=== PATIENT | male | born 1970 | race Caucasian/White ===

== ENCOUNTER 2017-11-03 15:21 | Inpatient (IN) | payer BC ==
[2017-11-03 15:44] LABS: Glucose,Whole Blood 451 mg/dL (75-99)
[2017-11-03] MEDS ORDERED: SODIUM CHLORIDE 0.9% 2,000 ML IV ONE (16:18)
[2017-11-03] MEDS ORDERED: INSULIN REGULAR 100 UNIT/ML VIAL IV ONE (16:19)
--- NOTE | 2017-11-03 16:46 | ED ---
General Adult HPI - General Chief complaint: Recheck/Abnormal Lab/Rx Stated complaint: High sugar Time Seen by Provider: 11/03/17 16:07 Source: patient, RN notes reviewed Mode of arrival: ambulatory Limitations: no limitations - History of Present Illness Initial comments: 47-year-old male presents emergency Department with chief complaint of hyperglycemia, feeling dizzy, near syncope. Patient states that today he's been extremely dizzy states that when he stands up or tries to move he loses vision and feels that he is going to pass out. Patient states that he checked his blood sugar was elevated current blood sugar here is 451. Patient has increased thirst, increased urination. Patient states that all night urinating. Patient states that he's been told by his PCP that he's been having slowly increasing blood glucose. Patient states that his been also tried on metformin in the past though cause muscle cramping and aching. Patient states that he did have a renal transplant secondary to polycystic kidney disease. Patient states he is on immune suppressants and sees his transplant team twice a year he's had no complications. - Related Data Home Medications Medication Instructions Recorded Confirmed ARIPiprazole [Abilify] 10 mg PO DAILY 09/03/16 11/03/17 Allopurinol [Zyloprim] 100 mg PO DAILY 09/03/16 11/03/17 Budesonide/Formoterol Fumarate 2 puff INHALATION RT-BID PRN 09/03/16 11/03/17 [Symbicort 80-4.5 Mcg Inhaler] Cholecalciferol [Vitamin D3] 1,000 unit PO DAILY 09/03/16 11/03/17 Doxercalciferol [Doxercalciferol] 0.5 mcg PO DAILY 09/03/16 11/03/17 Ergocalciferol (Vitamin D2) 50,000 unit PO Q30D 09/03/16 11/03/17 [Vitamin D2] Famotidine [Pepcid] 20 mg PO DAILY 09/03/16 11/03/[address] [Myfortic] 360 mg PO BID 09/03/16 09/03/16 Simvastatin [Zocor] 40 mg PO HS 09/03/16 11/03/17 Sodium Bicarbonate 50 mg PO TID 09/03/16 11/03/17 Tacrolimus [Prograf] 1 mg PO BID 09/03/16 11/03/17 amLODIPine [Norvasc] 10 mg PO DAILY 09/03/16 11/03/17 predniSONE 5 mg PO DAILY 09/03/16 11/03/17 Carvedilol [Coreg] 6.25 mg PO DAILY 11/03/17 11/03/17 Mycophenolate Sodium [Mycophenolic 720 mg PO BID 11/03/17 11/03/17 Acid] metFORMIN HCL ER [Glucophage Xr] 500 mg PO DAILY 11/03/17 11/03/17 Allergies Allergy/AdvReac Type Severity Reaction Status Date / Time Penicillins Allergy Rash/Hives Verified 11/03/17 16:08 Review of Systems ROS Statement: Those systems with pertinent positive or pertinent negative responses have been documented in the HPI. ROS Other: All systems not noted in ROS Statement are negative. Past Medical History Past Medical History: Hypertension Additional Past Medical History / Comment(s): kidney transplant, History of Any Multi-Drug Resistant Organisms: None Reported Past Surgical History: Orthopedic Surgery Additional Past Surgical History / Comment(s): silvestre nephrectomys, kidney transplant, peritoneal dialysis shunt orthopedic surg elbow toe Past Psychological History: No Psychological Hx Reported Smoking Status: Never smoker Past Alcohol Use History: None Reported Past Drug Use History: None Reported General Exam Limitations: no limitations General appearance: alert, in no apparent distress Head exam: Present: atraumatic, normocephalic, normal inspection Eye exam: Present: normal appearance, PERRL, EOMI. Absent: scleral icterus, conjunctival injection, periorbital swelling ENT exam: Present: normal exam, normal oropharynx, mucous membranes moist Neck exam: Present: normal inspection, full ROM. Absent: tenderness, meningismus, lymphadenopathy Respiratory exam: Present: normal lung sounds bilaterally. Absent: respiratory distress, wheezes, rales, rhonchi, stridor Cardiovascular Exam: Present: regular rate, normal rhythm, normal heart sounds. Absent: systolic murmur, diastolic murmur, rubs, gallop, clicks GI/Abdominal exam: Present: soft, normal bowel sounds. Absent: distended, tenderness, guarding, rebound, rigid Back exam: Present: normal inspection Neurological exam: Present: alert, oriented X3, CN II-XII intact, reflexes normal. Absent: motor sensory deficit Skin exam: Present: warm, dry, intact, normal color. Absent: rash Course Vital Signs 11/03/17 11/03/17 15:25 18:10 Temperature 97.8 F Pulse Rate 84 76 Respiratory 20 19 Rate Blood Pressure 136/78 133/77 O2 Sat by Pulse 99 100 Oximetry EKG Findings - EKG Comments: EKG Findings:: EKG performed at 16:39 normal sinus rhythm with a rate of 81 NJ 126 QRS 90 QT/QTC 396/460 Medical Decision Making - Lab Data Result diagrams: 11/03/17 17:00 11/03/17 17:00 Lab Results 11/03/17 11/03/17 11/03/17 Range/Units 15:31 17:00 17:00 WBC 6.8 (3.8-10.6) k/uL RBC 4.72 (4.30-5.90) m/uL Hgb 14.0 (13.0-17.5) gm/dL Hct 40.5 (39.0-53.0) % MCV 85.7 (80.0-100.0) fL MCH 29.6 (25.0-35.0) pg MCHC 34.5 (31.0-37.0) g/dL RDW 14.2 (11.5-15.5) % Plt Count 174 (150-450) k/uL Neutrophils % 60 % Lymphocytes % 31 % Monocytes % 6 % Eosinophils % 1 % Basophils % 0 % Neutrophils # 4.1 (1.3-7.7) k/uL Lymphocytes # 2.1 (1.0-4.8) k/uL Monocytes # 0.4 (0-1.0) k/uL Eosinophils # 0.1 (0-0.7) k/uL Basophils # 0.0 (0-0.2) k/uL Sodium 133 L (137-145) mmol/L Potassium 4.8 (3.5-5.1) mmol/L Chloride 95 L (98-107) mmol/L Carbon Dioxide 21 L (22-30) mmol/L Anion Gap 17 mmol/L BUN 28 H (9-20) mg/dL Creatinine 1.34 H (0.66-1.25) mg/dL Est GFR (MDRD) Af Amer >60 (>60 ml/min/1.73 sqM) Est GFR (MDRD) Non-Af 57 (>60 ml/min/1.73 sqM) Glucose 440 H (74-99) mg/dL POC Glucose (mg/dL) 451 H (75-99) mg/dL POC Glu Spray Unit Feeder ID Bandar Casillas Calcium 9.1 (8.4-10.2) mg/dL Total Bilirubin 1.8 H (0.2-1.3) mg/dL AST 16 L (17-59) U/L ALT 21 (21-72) U/L Alkaline Phosphatase 106 (38-126) U/L Troponin I (0.000-0.034) ng/mL Total Protein 6.6 (6.3-8.2) g/dL Albumin 4.3 (3.5-5.0) g/dL Lipase 149 (23-300) U/L Urine Color Urine Appearance (Clear) Urine pH (5.0-8.0) Ur Specific [place] (1.001-1.035) Urine Protein (Negative) Urine Glucose (UA) (Negative) Urine Blood (Negative) Urine Nitrite (Negative) Urine Bilirubin (Negative) Urine Urobilinogen (<2.0) mg/dL Ur Leukocyte Esterase (Negative) Acetone, Qual Positive (Negative) 11/03/17 11/03/17 11/03/17 Range/Units 17:00 17:50 17:55 WBC (3.8-10.6) k/uL RBC (4.30-5.90) m/uL Hgb (13.0-17.5) gm/dL Hct (39.0-53.0) % MCV (80.0-100.0) fL MCH (25.0-35.0) pg MCHC (31.0-37.0) g/dL RDW (11.5-15.5) % Plt Count (150-450) k/uL Neutrophils % % Lymphocytes % % Monocytes % % Eosinophils % % Basophils % % Neutrophils # (1.3-7.7) k/uL Lymphocytes # (1.0-4.8) k/uL Monocytes # (0-1.0) k/uL Eosinophils # (0-0.7) k/uL Basophils # (0-0.2) k/uL Sodium (137-145) mmol/L Potassium (3.5-5.1) mmol/L Chloride (98-107) mmol/L Carbon Dioxide (22-30) mmol/L Anion Gap mmol/L BUN (9-20) mg/dL Creatinine (0.66-1.25) mg/dL Est GFR (MDRD) Af Amer (>60 ml/min/1.73 sqM) Est GFR (MDRD) Non-Af (>60 ml/min/1.73 sqM) Glucose (74-99) mg/dL POC Glucose (mg/dL) 363 H (75-99) mg/dL POC Glu Spray Unit Feeder ID Mariusz Lim Calcium (8.4-10.2) mg/dL Total Bilirubin (0.2-1.3) mg/dL AST (17-59) U/L ALT (21-72) U/L Alkaline Phosphatase (38-126) U/L Troponin I <0.012 (0.000-0.034) ng/mL Total Protein (6.3-8.2) g/dL Albumin (3.5-5.0) g/dL Lipase (23-300) U/L Urine Color Light Yellow Urine Appearance Clear (Clear) Urine pH 5.0 (5.0-8.0) Ur Specific [place] 1.019 (1.001-1.035) Urine Protein Negative (Negative) Urine Glucose (UA) 4+ H (Negative) Urine Blood Negative (Negative) Urine Nitrite Negative (Negative) Urine Bilirubin Negative (Negative) Urine Urobilinogen <2.0 (<2.0) mg/dL Ur Leukocyte Esterase Negative (Negative) Acetone, Qual (Negative) Disposition Clinical Impression: DKA (diabetic ketoacidoses) Dis[facility] Condition: Stable Referrals: Bandar Cabral MD [Primary Care Provider] - 1-2 days
[2017-11-03 17:19] LABS: Basophils % (A) 0 %; Eosinophils # (A) 0.1 k/uL (0-0.7); Eosinophils % (A) 1 %; HCT 40.5 % (39.0-53.0); Lymphocytes # (A) 2.1 k/uL (1.0-4.8); Lymphocytes % (A) 31 %; MCH 29.6 pg (25.0-35.0); MCHC 34.5 g/dL (31.0-37.0); MCV 85.7 fL (80.0-100.0); Mean Platelet Volume 7.8; Monocytes # (A) 0.4 k/uL (0-1.0); Monocytes % (A) 6 %; Neutrophils # (A) 4.1 k/uL (1.3-7.7); Neutrophils % (A) 60 %; Platelet Count 174 k/uL (150-450); RBC 4.72 m/uL (4.30-5.90); RDW 14.2 % (11.5-15.5); WBC 6.8 k/uL (3.8-10.6)
[2017-11-03 17:47] LABS: ALT 21 U/L (21-72); AST 16 U/L (17-59); Albumin 4.3 g/dL (3.5-5.0); Alkaline Phosphatase 106 U/L (38-126); Anion Gap 17 mmol/L; Blood Urea Nitrogen 28 mg/dL (9-20); Calcium 9.1 mg/dL (8.4-10.2); Carbon Dioxide 21 mmol/L (22-30); Chloride 95 mmol/L (98-107); Glucose 440 mg/dL (74-99); Lipase 149 U/L (23-300); Potassium 4.8 mmol/L (3.5-5.1); Sodium 133 mmol/L (137-145); Total Bilirubin 1.8 mg/dL (0.2-1.3); Total Protein 6.6 g/dL (6.3-8.2)
[2017-11-03 17:55] LABS: Glucose,Whole Blood 363 mg/dL (75-99)
[2017-11-03 18:01] LABS: Appearance,Urine Clear (Clear); Bilirubin,Urine Negative (Negative); Blood,Urine Negative (Negative); Color,Urine Light Yellow; Glucose,Urine (UA) 4+ (Negative); Leukocyte Esterase,Urine Negative (Negative); Protein,Urine Negative (Negative); Specific Gravity,Urine 1.019 (1.001-1.035); Urobilinogen,Urine <2.0 mg/dL (<2.0)
[2017-11-03 18:15] LABS: Ketones,Urine 2+ (Negative)
[2017-11-03] MEDS ORDERED: SODIUM CHLORIDE 0.9% 1,000 ML IV SCH ×2 (18:15→20:00)
[2017-11-03] MEDS ORDERED: NALOXONE 0.4 MG/ML 1 ML VIAL IV PRN (18:17)
[2017-11-03 19:24] LABS: Glucose,Whole Blood 302 mg/dL (75-99)
[2017-11-03] MEDS ORDERED: Magnesium Replacement Protocol 1 EACH MISC MISCELLANE PRN (19:55)
[2017-11-03] MEDS ORDERED: Potassium Replacement Protocol 1 EACH MISC MISCELLANE PRN (19:55)
[2017-11-03 20:00] LABS: Glucose,Whole Blood 308 mg/dL (75-99)
[2017-11-03] MEDS ORDERED: INSULIN REGULAR 100 UNIT in SODIUM CHLORIDE 0.9% 100 ML IV SCH (20:00)
[2017-11-03] MEDS ORDERED: D5-0.45% NACL WITH KCL 20MEQ/L 1,000 ML IV SCH (20:00)
[2017-11-03 20:45] LABS: Anion Gap 14 mmol/L; Basophils % (A) 1 %; Blood Urea Nitrogen 24 mg/dL (9-20); Carbon Dioxide 21 mmol/L (22-30); Chloride 102 mmol/L (98-107); Eosinophils % (A) 1 %; Glucose 283 mg/dL (74-99); HCT 36.3 % (39.0-53.0); HGB 12.7 gm/dL (13.0-17.5); Lymphocytes # (A) 1.6 k/uL (1.0-4.8); Lymphocytes % (A) 37 %; MCH 29.8 pg (25.0-35.0); MCV 85.1 fL (80.0-100.0); Mean Platelet Volume 7.8; Monocytes # (A) 0.3 k/uL (0-1.0); Monocytes % (A) 6 %; Neutrophils # (A) 2.4 k/uL (1.3-7.7); Neutrophils % (A) 54 %; Phosphorus 3.2 mg/dL (2.5-4.5); Platelet Count 140 k/uL (150-450); Potassium 4.1 mmol/L (3.5-5.1); RBC 4.27 m/uL (4.30-5.90); RDW 14.2 % (11.5-15.5); Sodium 137 mmol/L (137-145); WBC 4.4 k/uL (3.8-10.6)
[2017-11-03] MEDS: INSULIN ASPART 100 UNIT/ML 1 ML 10 ML VIAL SQ SCH (20:53)
[2017-11-03 21:51] LABS: Glucose,Whole Blood 226 mg/dL (75-99)
[2017-11-03 23:21] LABS: Glucose,Whole Blood 140 mg/dL (75-99)
[2017-11-04 00:42] LABS: Glucose,Whole Blood 115 mg/dL (75-99)
[2017-11-04 00:46] LABS: Anion Gap 10 mmol/L; Blood Urea Nitrogen 20 mg/dL (9-20); Carbon Dioxide 25 mmol/L (22-30); Chloride 105 mmol/L (98-107); Glucose 97 mg/dL (74-99); Phosphorus 2.7 mg/dL (2.5-4.5); Potassium 3.7 mmol/L (3.5-5.1); Sodium 140 mmol/L (137-145)
[2017-11-04] MEDS ORDERED: INSULIN NPH 300 UNIT/3 ML VIAL SQ ONE (00:53)
[2017-11-04] MEDS: D5-0.45% NACL WITH KCL 20MEQ/L 1,000 ML IV SCH (01:18)
[2017-11-04 03:06] LABS: Glucose,Whole Blood 141 mg/dL (75-99)
[2017-11-04 06:07] LABS: Glucose,Whole Blood 184 mg/dL (75-99)
[2017-11-04 06:08] LABS: Basophils % (A) 0 %; Eosinophils # (A) 0.1 k/uL (0-0.7); Eosinophils % (A) 2 %; HCT 37.2 % (39.0-53.0); HGB 12.6 gm/dL (13.0-17.5); Lymphocytes # (A) 1.7 k/uL (1.0-4.8); Lymphocytes % (A) 39 %; MCH 29.5 pg (25.0-35.0); Mean Platelet Volume 7.6; Monocytes # (A) 0.3 k/uL (0-1.0); Monocytes % (A) 7 %; Neutrophils # (A) 2.2 k/uL (1.3-7.7); Neutrophils % (A) 50 %; Platelet Count 146 k/uL (150-450); RBC 4.28 m/uL (4.30-5.90); RDW 14.3 % (11.5-15.5); WBC 4.4 k/uL (3.8-10.6)
[2017-11-04 06:18] LABS: ALT 16 U/L (21-72); AST 15 U/L (17-59); Albumin 3.1 g/dL (3.5-5.0); Alkaline Phosphatase 54 U/L (38-126); Anion Gap 13 mmol/L; Blood Urea Nitrogen 17 mg/dL (9-20); Calcium 8.1 mg/dL (8.4-10.2); Carbon Dioxide 22 mmol/L (22-30); Chloride 103 mmol/L (98-107); Glucose 175 mg/dL (74-99); Phosphorus 3.1 mg/dL (2.5-4.5); Potassium 4.1 mmol/L (3.5-5.1); Sodium 138 mmol/L (137-145); Total Protein 5.2 g/dL (6.3-8.2)
[2017-11-04] MEDS ORDERED: SYMBICORT 80-4.5 MCG INHALER INHALATION PRN (06:57)
[2017-11-04] MEDS ORDERED: ERGOCALCIFEROL 50,000 UNIT CAP PO SCH (07:00)
[2017-11-04] MEDS: INSULIN ASPART 100 UNIT/ML 1 ML 10 ML VIAL SQ SCH ×7 (07:00→21:18)
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
[2017-11-04] MEDS: ATORVASTATIN 40 MG TAB PO SCH (10:14)
[2017-11-04] MEDS: DOXERCALCIFEROL 0.5 MCG CAP PO SCH ×2 (10:15→12:11)
[2017-11-04] MEDS: CARVEDILOL 6.25 MG TAB PO SCH ×2 (10:16→12:12)
[2017-11-04] MEDS: TACROLIMUS 1 MG CAP PO SCH ×2 (10:16→19:51)
[2017-11-04] MEDS: amLODIPine 10 MG TAB PO SCH (10:17)
[2017-11-04] MEDS: predniSONE 5 MG TAB PO SCH (10:18)
[2017-11-04] MEDS: CHOLECALCIFEROL 1,000 UNIT TAB PO SCH (10:18)
[2017-11-04] MEDS: MYCOPHENOLATE SODIUM DR 180 MG TABLET.DR PO SCH ×2 (10:18→19:50)
[2017-11-04] MEDS: FAMOTIDINE 20 MG TAB PO SCH (10:18)
[2017-11-04 11:10] VITALS: BMI 32.8
[2017-11-04 11:53] LABS: Glucose,Whole Blood 283 mg/dL (75-99)
[2017-11-04] MEDS: ALLOPURINOL 100 MG TAB PO SCH (12:12)
[2017-11-04] MEDS: SODIUM BICARBONATE TAB 650 MG TAB PO SCH ×3 (12:22→19:51)
[2017-11-04 12:51] LABS: Hemoglobin A1C 12.5 % (4.0-6.0)
--- NOTE | 2017-11-04 14:19 | CDI ---
Last Revision, August 2017 Documentation Clarification Form Date: 11/04/2017 2:00:00 PM From: Nidia Eubanks RN, CCDS Admit Date: 11/03/2017 6:12:00 PM Patient Name: Christoph Russell Visit Number: [id number] Discharge Date: ATTENTION: The Clinical Documentation Specialists (CDI) and [facility] Coding Staff appreciate your assistance in clarifying documentation. Please respond to the clarification below the line at the bottom and electronically sign. The CDI & [facility] Coding staff will review the response and follow-up if needed. Please note: Queries are made part of the Legal Health Record. If you have any questions, please contact the author of this message via ITS. Dr. Bandar Cabral The patient has diabetes, as indicated on past medical history and your H/P on . History/Risk Factors: hypertension, Diabetes Mellitus Clinical Indicators: Present with complaints of polyuria and polydipsia. He report feeling dizzy, near syncope. In ER blood sugar on admission was 451, and acetone, qualitative was positive. Vital signs: 136/78 84 20 97.8, he is alert, orientated x3. Treatment: IV Fluids Insulin drip Monitor Blood Sugar with Insulin scale per orders Dietary consult In order to capture the severity of Illness and necessary documentation specificity, please clarify: DM Type 1 DM Type 2 DM due to underlying condition, specify (e.g. Cushings syndrome) Drug/chemical induced DM (document the drug/chemical) Gestational DM Other, please specify Unable to Determine Please continue to document in your progress notes and discharge summary in order to capture severity of illness and risk of mortality. Include clinical findings that support your diagnosis. MTDD
[2017-11-04 17:05] LABS: Glucose,Whole Blood 282 mg/dL (75-99)
[2017-11-04] MEDS: PREGABALIN 50 MG CAP PO SCH (18:00)
[2017-11-04] MEDS ORDERED: ATORVASTATIN 20 MG TAB PO SCH (21:00)
[2017-11-04] MEDS ORDERED: INSULIN DETEMIR 100 UNIT/ML 10 ML VIAL SQ SCH (21:00)
[2017-11-04 21:06] LABS: Glucose,Whole Blood 221 mg/dL (75-99)
[2017-11-05] MEDS: D5-0.45% NACL WITH KCL 20MEQ/L 1,000 ML IV SCH (00:12)
[2017-11-05] MEDS: PREGABALIN 50 MG CAP PO SCH (05:46)
[2017-11-05] MEDS: FAMOTIDINE 20 MG TAB PO SCH (07:07)
[2017-11-05] MEDS: amLODIPine 10 MG TAB PO SCH (07:07)
[2017-11-05] MEDS: ATORVASTATIN 40 MG TAB PO SCH (07:07)
[2017-11-05] MEDS: DOXERCALCIFEROL 0.5 MCG CAP PO SCH (07:07)
[2017-11-05] MEDS: SODIUM BICARBONATE TAB 650 MG TAB PO SCH (07:07)
[2017-11-05] MEDS: CARVEDILOL 6.25 MG TAB PO SCH (07:08)
[2017-11-05] MEDS: predniSONE 5 MG TAB PO SCH (07:08)
[2017-11-05] MEDS: MYCOPHENOLATE SODIUM DR 180 MG TABLET.DR PO SCH (07:08)
[2017-11-05] MEDS: CHOLECALCIFEROL 1,000 UNIT TAB PO SCH (07:08)
[2017-11-05] MEDS: ALLOPURINOL 100 MG TAB PO SCH (07:08)
[2017-11-05] MEDS: TACROLIMUS 1 MG CAP PO SCH (07:09)
[2017-11-05] MEDS: INSULIN ASPART 100 UNIT/ML 1 ML 10 ML VIAL SQ SCH ×2 (07:20→08:01)
[2017-11-05 07:21] LABS: Glucose,Whole Blood 118 mg/dL (75-99)
--- NOTE | 2017-11-05 08:06 | P.DS ---
Providers Date of admission: 11/03/17 18:12 Expected date of discharge: 11/05/17 Attending physician: Bandar Cabral Primary care physician: Bandar Cabral - Discharge Diagnosis(es) (1) History of renal transplant Current Visit: Yes Status: Acute (2) Depression Current Visit: Yes Status: Acute (3) DKA (diabetic ketoacidoses) Current Visit: Yes Status: Acute Hospital Course: This is a discharge summary 47-year-old white male who essentially omitted for diabetic ketoacidosis. The patient takes Abilify secondary to depression. This was discontinued. He has a renal transplant patient and had been doing quite well after protocol was followed. He will be discharged on basal bolus insulin with appropriate dietary modifications. Diabetes education was followed and the patient will follow-up with me in about 5 days. The patient will follow-up with my agronomy location manager about 4 days. Patient Condition at Discharge: Stable Plan - Discharge Summary Discharge Rx Participant: No New Discharge Prescriptions: New Insulin Aspart [Novolog Flexpen] 12 unit SQ AC-TID #2 insuln.pen Insulin Detemir [Levemir Flextouch] 37 unit SQ HS #3 insuln.pen Continue Budesonide/Formoterol Fumarate [Symbicort 80-4.5 Mcg Inhaler] 2 puff INHALATION RT-BID PRN PRN Reason: Shortness Of Breath amLODIPine [Norvasc] 10 mg PO DAILY Sodium Bicarbonate 650 mg PO TID Ergocalciferol (Vitamin D2) [Vitamin D2] 50,000 unit PO Q30D Allopurinol [Zyloprim] 100 mg PO DAILY predniSONE 5 mg PO DAILY Cholecalciferol [Vitamin D3] 1,000 unit PO DAILY Simvastatin [Zocor] 40 mg PO HS Famotidine [Pepcid] 20 mg PO DAILY Tacrolimus [Prograf] 1 mg PO BID Mycophenolate Sodium Dr [Myfortic] 360 mg PO BID Doxercalciferol 0.5 mcg PO DAILY Carvedilol [Coreg] 6.25 mg PO DAILY metFORMIN HCL ER [Glucophage Xr] 500 mg PO DAILY Mycophenolate Sodium [Mycophenolic Acid] 720 mg PO BID Discontinued ARIPiprazole [Abilify] 10 mg PO DAILY Discharge Medication List Allopurinol [Zyloprim] 100 mg PO DAILY 09/03/16 [History] Budesonide/Formoterol Fumarate [Symbicort 80-4.5 Mcg Inhaler] 2 puff INHALATION RT-BID PRN 09/03/16 [History] Cholecalciferol [Vitamin D3] 1,000 unit PO DAILY 09/03/16 [History] Doxercalciferol 0.5 mcg PO DAILY 09/03/16 [History] Ergocalciferol (Vitamin D2) [Vitamin D2] 50,000 unit PO Q30D 09/03/16 [History] Famotidine [Pepcid] 20 mg PO DAILY 09/03/16 [History] Mycophenolate Sodium Dr [Myfortic] 360 mg PO BID 09/03/16 [History] Simvastatin [Zocor] 40 mg PO HS 09/03/16 [History] Sodium Bicarbonate 650 mg PO TID 09/03/16 [History] Tacrolimus [Prograf] 1 mg PO BID 09/03/16 [History] amLODIPine [Norvasc] 10 mg PO DAILY 09/03/16 [History] predniSONE 5 mg PO DAILY 09/03/16 [History] Carvedilol [Coreg] 6.25 mg PO DAILY 11/03/17 [History] Mycophenolate Sodium [Mycophenolic Acid] 720 mg PO BID 11/03/17 [History] metFORMIN HCL ER [Glucophage Xr] 500 mg PO DAILY 11/03/17 [History] Insulin Aspart [Novolog Flexpen] 12 unit SQ AC-TID #2 insuln.pen 11/05/17 [Rx] Insulin Detemir [Levemir Flextouch] 37 unit SQ HS #3 insuln.pen 11/05/17 [Rx] Follow up Appointment(s)/Referral(s): Bandar Cabral MD [Primary Care Provider] - 1-2 days
[2017-11-05 08:07] LABS: ALT 24 U/L (21-72); AST 17 U/L (17-59); Albumin 3.2 g/dL (3.5-5.0); Alkaline Phosphatase 54 U/L (38-126); Anion Gap 9 mmol/L; Blood Urea Nitrogen 13 mg/dL (9-20); Calcium 8.5 mg/dL (8.4-10.2); Carbon Dioxide 24 mmol/L (22-30); Chloride 106 mmol/L (98-107); Glucose 111 mg/dL (74-99); Potassium 3.8 mmol/L (3.5-5.1); Sodium 139 mmol/L (137-145); Total Bilirubin 0.9 mg/dL (0.2-1.3); Total Protein 5.5 g/dL (6.3-8.2)
[2017-11-05 08:26] VITALS: BP 133/77; PULSE 66; RESP 18; TEMP 97.6
== END 2017-11-05 10:40 | disposition home or self-care (01) | DRG 638 ==
LOC: EC 15:21 → 6SEL 18:12 → 5MS5E 11-04 21:31
PROVIDERS: ADMIT Family Medicine; ATTEND Family Medicine
DX: E11.10 Type 2 diabetes mellitus with ketoacidosis without coma (principal); Z94.0 Kidney transplant status; E78.5 Hyperlipidemia, unspecified; F32.9 Major depressive disorder, single episode, unspecified; I10 Essential (primary) hypertension; J45.909 Unspecified asthma, uncomplicated; K21.9 Gastro-esophageal reflux disease without esophagitis; M10.9 Gout, unspecified; R25.1 Tremor, unspecified; Z79.84 Long term (current) use of oral hypoglycemic drugs; Z79.899 Other long term (current) drug therapy; Z79.52 Long term (current) use of systemic steroids; Z87.820 Personal history of traumatic brain injury; Z88.0 Allergy status to penicillin; Z85.828 Personal history of other malignant neoplasm of skin
CPT/HCPCS: 36415; 80051; 80053; 81003; 82009; 82043; 82565; 82570; 82947; 83036; 83690; 83735; 84100; 84484; 84520; 84681; 85025; 93005; 96360; 99285

== ENCOUNTER 2023-01-08 16:23 | Emergency (ER) | payer OTHER, BC ==
[2023-01-08 16:36] VITALS: RESP 18
[2023-01-08] MEDS ORDERED: CYCLOBENZAPRINE 10 MG TAB PO STA (17:03)
[2023-01-08] MEDS ORDERED: LIDOCAINE 5% PATCH TOPICAL STA (17:03)
--- NOTE | 2023-01-08 17:40 | ED ---
General Adult HPI - General Chief complaint: Fall Stated complaint: fell head injury Time Seen by Provider: 01/08/23 16:37 Source: patient, RN notes reviewed, old records reviewed Mode of arrival: ambulatory Limitations: no limitations - History of Present Illness Initial comments: Patient is a 52-year-old male with past medical history remarkable for kidney transplants, hypertension, diabetes, not currently on blood thinners presents emergency department after falling at work. Does work construction, and was walking down an embankment when he lost his footing. He fell he states onto his head. Fall was approximately 4-5 feet. Did not lose consciousness. Was wearing a helmet. States he was an laboratory afterwards. This occurred approximately 3 hours ago. However since that time he has been noticing that he is having worsening mild headache, neck pain, shoulder pain, lower back pain, left hand pain, left wrist pain. Also poked his left hand with a thorn which he got out. Presents for further evaluation at this time. - Related Data Home Medications Medication Instructions Recorded Confirmed Cholecalciferol [Vitamin D3 (25 25 mcg PO HS 09/03/16 10/21/22 Mcg = 1000 Iu)] Famotidine [Pepcid] 20 mg PO DAILY 09/03/16 10/21/22 Simvastatin [Zocor] 40 mg PO HS 09/03/16 10/21/22 Tacrolimus [Prograf] 2 mg PO BID 09/03/16 10/21/22 allopurinoL [Zyloprim] 100 mg PO DAILY 09/03/16 10/21/22 doxercalciferoL [Doxercalciferol] 0.5 mcg PO HS 09/03/16 10/21/22 predniSONE 5 mg PO DAILY 09/03/16 10/21/22 Mycophenolate Sodium [Mycophenolic 720 mg PO BID 11/03/17 10/21/22 Acid] carvediloL [Coreg] 6.25 mg PO BID 11/03/17 10/21/22 Budesonide/Formoterol Fumarate 2 puff INHALATION RT-BID PRN 10/21/22 10/21/22 [Symbicort 160-4.5 Mcg Inhaler] Ergocalciferol [Vitamin D2 (1250 1,250 mcg PO Q30D 10/21/22 10/21/22 Mcg = 25939 Iu)] Zolpidem Tartrate [Ambien] 5 mg PO HS PRN 10/21/22 10/21/22 buPROPion XL [Wellbutrin XL] 300 mg PO DAILY 10/21/22 10/21/22 Previous Rx's Medication Instructions Recorded Ezetimibe [Zetia] 10 mg PO DAILY #90 tab 10/23/22 Insulin Detemir (Levemir) [Levemir] 30 unit SQ DAILY@0700 each 10/23/22 Cyclobenzaprine [Flexeril] 10 mg PO BID PRN 14 Days #28 tab 01/08/23 HYDROcodone/APAP 5-325MG [[place] 1 tab PO Q6HR PRN 3 Days #12 tab 01/08/23 5-325] Lidocaine 5% Patch [Lidoderm 5% 1 patch TOPICAL DAILY PRN 14 Days 01/08/23 Patch] #14 patch Allergies Allergy/AdvReac Type Severity Reaction Status Date / Time Penicillins Allergy Rash/Hives Verified 01/08/23 16:31 Review of Systems ROS Statement: Those systems with pertinent positive or pertinent negative responses have been documented in the HPI. Review of Systems: CONST: Denies fever EYES: Denies blurry vision ENT: Denies nasal congestion C/V: Denies Chest pain RESP: Denies shortness of breath GI: Denies abdominal pain : Denies dysuria SKIN: Denies rash. MSK: Endorses body pain. NEURO: Denies headache ROS Other: All systems not noted in ROS Statement are negative. Past Medical History Past Medical History: Asthma, Diabetes Mellitus, GERD/Reflux, Hyperlipidemia, Hypertension, Pneumonia Additional Past Medical History / Comment(s): hx polycystic disease,rt kidney transplant, basal cell skin ca, gout,per pt's pt was considered boarderline dm started metformin but taken off it d/t side effects, 2016 concussion (d/t accident), fx to lt femur and lower lumbar and cervical-no sx wore brace, tremors in hands. pt's stated pt is more suseptable to cmv. Has had plasmapharesis History of Any Multi-Drug Resistant Organisms: None Reported Past Surgical History: Hernia Repair, Orthopedic Surgery Additional Past Surgical History / Comment(s): silvestre nephrectomies 2011 ans 2012, rt kidney transplant, orthopedic surg elbow.rt great toe sx, egd Past Anesthesia/Blood Transfusion Reactions: Previous Problems w/ Anesthesia Additional Past Anesthesia/Blood Transfusion Reaction / Comment(s): in past before he had kidney transplant he had difficulty waking up after aa and difficulty urinating Past Psychological History: No Psychological Hx Reported Smoking Status: Former smoker Past Alcohol Use History: Occasional Past Drug Use History: None Reported - Past Family History Father Family Medical History: Cancer, Dementia, Prostate Disorder Mother Family Medical History: Hyperlipidemia General Exam - General Exam Comments Initial Comments: General: Appears in mild to moderate distress secondary to pain. HEAD: Normal with no signs of head trauma. Elise sign. Negative raccoon eyes. EYES: PERRLA, EOMI, conjunctiva normal, no discharge. Pupils 3 mm and equal bilaterally. ENT: Hearing grossly intact, normal oropharynx. RESPIRATORY: Clear breath sounds bilaterally. No wheezes, rales, or rhonchi. C/V: Regular rate and rhythm. S1 and S2 auscultated, no edema, peripheral pulses 2+ and intact throughout ABD: Abd is soft, nontender, nondistended EXT: Reduced range of motion the neck secondary to pain primarily in the bilateral trapezius muscle but also some midline cervical spine tenderness as well as midline lumbar spine tenderness palpation. No midline thoracic spine tenderness to palpation. No obvious step-offs or deformities palpated. Patient does have some right-sided paraspinal lumbar's tenderness palpation. Pelvis is stable. No lower extremity tenderness to palpation and normal range of motion. Right upper extremity also has normal range of motion except for some mild right elbow tenderness with movement. No obvious injury. No obvious deformity. Left upper extremity has no obvious injury or deformity but tenderness when passively and actively moving his left arm as well as his left wrist and fingers. Her main pain seems to be over the thenar eminence of the left palm as well as the left lateral wrist. No snuffbox tenderness to palpation. Generalized tenderness to palpation in the left shoulder. SKIN: Small puncture wound located over the thenar no evidence of the left palm. No obvious foreign body. No concern for infection. NEURO: Alert and oriented x 4. Cranial nerves II-XII intact. No focal sensory or strength deficits. GCS of 15. Limitations: no limitations Course Vital Signs 01/08/23 16:32 Temperature 98 F Pulse Rate 93 Respiratory 18 Rate Blood Pressure 158/96 O2 Sat by Pulse 97 Oximetry Procedures - Orthopedic Splinting/Casting Injury #1 Side: right Upper Extremity Injury Location: elbow Upper Extremity Immobilizer: sling/shoulder immobilizer, posterior splint Additional Comments: Neurovascularly intact following procedure. Medical Decision Making - Medical Decision Making Was pt. sent in by a medical professional or institution (, PA, GAMING WORKER, urgent care, hospital, or usp...) When possible be specific @ -No Did you speak to anyone other than the patient for history (EMS, parent, family, police, friend...)? What history was obtained from this source @ -No Did you review nursing and triage notes (agree or disagree)? Why? @ -I reviewed and agree with nursing and triage notes Were old charts reviewed (outside hosp., previous admission, EMS record, old EKG, old radiological studies, urgent care reports/EKG's, usp records)? Report findings @ -No old charts were reviewed Differential Diagnosis (chest pain, altered mental status, abdominal pain women, abdominal pain men, vaginal bleeding, weakness, fever, dyspnea, syncope, headache, dizziness, GI bleed, back pain, seizure, CVA, palpatations, mental health, musculoskeletal)? @ -Intracranial injury, intracranial injury, bony traumatic subluxation. Abrasion. Spine injury. This list is not all inclusive. EKG interpreted by me (3pts min.). @ -None done X-rays interpreted by me (1pt min.). @ -Patient's right elbow x-ray shows anterior fat pad displacement. Remaining x-rays show no obvious fracture or deformities. There is a lucency in the distal left ulna but no fracture. CT interpreted by me (1pt min.). @ -CT imaging revealed no obvious injuries. Does have a cyst on his transplanted kidney. Patient also has chronic degenerative changes of the spine. No acute fractures or subluxations. No acute intracranial process. U/S interpreted by me (1pt. min.). @ -None done What testing was considered but not performed or refused? (CT, X-rays, U/S, labs)? Why? @ -None What meds were considered but not given or refused? Why? @ -I did offer analgesic medications which were declined initially secondary to not wanting them. Was in agreement with receiving Flexeril as well as lidocaine patch. Did you discuss the management of the patient with other professionals (professionals i.e. , PA, GAMING WORKER, lab, RT, psych nurse, social services technician, concierge, teacher, submarine advisory team watch officer, bilingual case manager)? Give summary @ -No Was smoking cessation discussed for >3mins.? @ -No Was critical care preformed (if so, how long)? @ -No Were there social determinants of health that impacted care today? How? (Homelessness, low income, unemployed, alcoholism, drug addiction, transportation, low edu. Level, literacy, decrease access to med. care, senior living, rehab)? @ -No Was there de-escalation of care discussed even if they declined (Discuss DNR or withdrawal of care, Hospice)? DNR status @ -No What co-morbidities impacted this encounter? (DM, HTN, Smoking, COPD, CAD, Cancer, CVA, ARF, Chemo, Hep., AIDS, mental health diagnosis, sleep apnea, morbid obesity)? @ -None Was patient admitted / discharged? Hospital course, mention meds given and route, prescriptions, significant lab abnormalities, going to OR and other pertinent info. @ -Based on the patient's presentation and physical exam, did have a significant fall and is not complaining of primarily spine pain but also bilateral shoulder pain, left hand pain. I did discuss imaging options for him, and as we are already will be imaging his spine, we will include imaging of the chest abdomen pelvis as well without contrast. We will also obtain plain films of the left arm. Patient was in agreement this plan. He will receive Flexeril and lidocaine patch for pain. Vital signs are within acceptable limits. Patient's imaging returned negative for any obvious fractures. Patient does have some elbow discomfort on the right but normal range of motion. We discussed the anterior fat pad is placed in that is mild. We'll splint it and have him follow-up with his known-orthopedic surgeon Dr. Voss who is familiar with. He'll also be placed in a sling. Patient who was originally placed in a cervical spine headache cleared and was removed. Still is complaining of left shoulder pain. Still is complaining of generalized back discomfort but is mildly improved. Able to ambulate with pain. We'll try to go home. I believe this is reasonable. He will receive a dose of IM morphine as well as a Tylenol 3 starter pack as well as home prescriptions. She Was administered. Patient was in agreement with this plan. Strict return precautio ns discussed. Patient tolerated splinting well. Intact neurovascularly following procedure. I will provide the patient with a prescription for Flexeril, lidocaine patch, [place]. I instructed the patient to follow up with their PCP in the next 1-3 days. [I provided contact information for follow up with] orthopedic Dr. Voss who he is familiar with.. I explained that the patient should return to the emergency department if they experience any worsening symptoms. Strict return precautions were discussed with the patient. The patient expressed understanding of these instructions. I answered all questions that the patient had. The patient was discharged home in there condition with their prescriptions and follow up information. Undiagnosed new problem with uncertain prognosis? @ -No Drug Therapy requiring intensive monitoring for toxicity (Heparin, Nitro, Insulin, Cardizem)? @ -No Were any procedures done? @ -No Diagnosis/symptom? @ -Fall, Right elbow injury, left shoulder sprain, muscle sprains Acute, or Chronic, or Acute on Chronic? @ -Acute Uncomplicated (without systemic symptoms) or Complicated (systemic symptoms)? @ -Complicated Side effects of treatment? @ -No Exacerbation, Progression, or Severe Exacerbation? @ -No Poses a threat to life or bodily function? How? (Chest pain, [place], [place], pneumonia, PE, COPD, DKA, ARF, appy, cholecystitis, CVA, Diverticulitis, Homicidal, Suicidal, threat to staff... and all critical care pts) @ -No Disposition Clinical Impression: Fall, Muscle strain, Shoulder sprain, Strain of elbow, Abrasion Disposition: HOME SELF-CARE Condition: Fair Instructions (If sedation given, give patient instructions): Muscle Strain (ED), Rotator Cuff Injury (ED), Fall Prevention (ED) Prescriptions: Cyclobenzaprine [Flexeril] 10 mg PO BID PRN 14 Days #28 tab PRN Reason: Pain Lidocaine 5% Patch [Lidoderm 5% Patch] 1 patch TOPICAL DAILY PRN 14 Days #14 patch PRN Reason: Pain HYDROcodone/APAP 5-325MG [[place] 5-325] 1 tab PO Q6HR PRN 3 Days #12 tab PRN Reason: Pain Is patient prescribed a controlled substance at d/c from ED?: Yes When asked, does pt state using other controlled substances?: No If prescribed controlled substance>3 days was MAPS reviewed?: Prescribed <3 Days If opioid is for acute pain is fill amount 7 days or less?: No If Rx opioid, was Start Talking consent form obtained?: Yes Referrals: Bandar Cabral MD [Primary Care Provider] - 1-2 days Christoph Voss DO [Doctor of Osteopathic Medicine] - 1-2 days Time of Disposition: 19:42
--- NOTE | 2023-01-08 17:59 | CT ---
EXAMINATION TYPE: CT brain cspine wo con CT DLP: 3710.8 mGycm, Automated exposure control for dose reduction was used. DATE OF EXAM: 01/08/2023 5:51 PM COMPARISON: None.. CLINICAL INDICATION:Male, 52 years old with history of fall, pain; pain after fall TECHNIQUE: Brain: Multiple axial CT images of the brain were obtained without IV contrast. Cspine: Axial CT images from the skull base to the inferior aspect of T2 we obtained without intraven ous contrast. Coronal and sagittal reformatted images were also reviewed. FINDINGS: Brain: Extra-axial spaces: No abnormal extra-axial fluid collections. Ventricular system: Within normal limits Cerebral parenchyma: No acute intraparenchymal hemorrhage or mass effect. The werner-white junction is well differentiated. Cerebellum: Unremarkable. Mass effect: No evidence of midline shift. Intracranial vasculature: unremarkable Soft tissues: Normal. Calvarium/osseous structures: No depressed skull fracture. Paranasal sinuses and mastoid air cells: The mastoid air cells are clear. Mucous retention cyst withi n the inferior left rectus sinus measuring up to 2.2 cm. Remaining paranasal sinuses are clear. Visualized orbits: Orbital contents are intact. Cervical spine: Fracture: None. Osseous structures: Multilevel degenerative disc disease changes with endplate spurring and disc oste ophyte complex's. Vertebral alignment: Within normal limits. Spinal canal/Neural Foramina: Disc osteophyte complexes at C5-C6 and C6-C7 with at least mild spinal canal stenosis. Facet joint uncovertebral joint arthropathy scattered throughout the cervical spine w ith varying degrees of neural foraminal stenosis. Neck soft tissues: Prevertebral soft tissues are within normal limits. Other: The airway is patent. The lung apices are clear. IMPRESSION: 1. No acute intracranial process. 2. No evidence of cervical spine fracture. 3. Mild multilevel degenerative disc disease.
--- NOTE | 2023-01-08 18:09 | CT ---
EXAMINATION TYPE: CT ChestAbdPelvis wo con CT DLP: 3710.8 mGycm, Automated exposure control for dose reduction was used. DATE OF EXAM: 01/08/2023 5:51 PM COMPARISON: . Chest radiograph from same day. CLINICAL INDICATION:Male, 52 years old with history of fall, pain; PHH, pain after fall Technique: Multiple axial images of the chest, abdomen, and pelvis were obtained of the administratio n of intravenous contrast. Two-dimensional coronal and sagittal reconstructions were obtained. Findings: Evaluation is limited due to lack of intravenous contrast. CHEST: LUNGS/ PLEURA: No pleural effusion, pneumothorax, focal consolidation. Bibasilar subsegmental depende nt atelectasis. AIRWAY: Patent and unremarkable.. HEART: Size within normal limits. No pericardial effusion. MEDIASTINUM: No gross evidence of adenopathy. VASCULATURE: No aortic aneurysm. MUSCULOSKELETAL: No acute osseous abnormalities. Please further to dedicated CT thoracolumbar spine s jeaneth for findings. SOFT TISSUES/LYMPH NODES: Unremarkable. LOWER NECK: No significant findings. ABDOMEN: ABDOMEN LIVER: Multiple hypoattenuating lesions demonstrated throughout the liver most consistent with cysts. GALLBLADDER AND BILE DUCTS: Unremarkable. PANCREAS: Unremarkable. SPLEEN: Enlarged measuring 17.1 cm in CC dimension. ADRENAL GLANDS: Unremarkable noncontrast appearance. KIDNEYS AND URETERS: Both mor[place] kidneys are surgically absent. No suspicious soft tissue in the neph rectomy beds. Transplant kidney within the right lower pelvis. There is a 1.8 cm hypodense lesion wit hin the midportion. PELVIS BLADDER: Unremarkable REPRODUCTIVE: Coarse calcifications of the prostate gland are identified. ABDOMEN & PELVIS STOMACH AND BOWEL: Stomach and duodenum are unremarkable. No focal wall thickening or surrounding inf lammatory changes. No evidence of bowel obstruction. PERITONEUM: No evidence of pneumoperitoneum or free fluid. VASCULATURE: No evidence of aortic aneurysm. MUSCULOSKELETAL: No acute osseous abnormalities. Please refer to dedicated CT thoracolumbar spine the same day for findings. LYMPH NODES: No gross evidence for lymphadenopathy. SOFT TISSUE/ABDOMINAL WALL: Postsurgical changes anterior abdominal wall. IMPRESSION: 1. No acute traumatic intrathoracic or intra-abdominal/pelvic process. 2. Postsurgical changes from bilateral nephrectomy with right pelvic transplant kidney. There is a 1 .8 cm hypodense lesion within the transplant kidney which could represent a cyst. Further evaluation with outpatient ultrasound is recommended. 3. Splenomegaly. 4. Multiple hepatic cysts.
--- NOTE | 2023-01-08 18:14 | CT ---
EXAMINATION TYPE: CT thor lumbar spine wo con CT DLP: 3710.8 mGycm, Automated exposure control for dose reduction was used. DATE OF EXAM: 01/08/2023 5:52 PM COMPARISON: CT chest abdomen pelvis of the same date. CLINICAL INDICATION:Male, 52 years old with history of fall, pain; PHH, pain after fall TECHNIQUE: Axial images of the thoracolumbar spine were obtained without contrast. Coronal and sagitt al reformats were performed. FINDINGS: The thoracic and lumbar vertebral bodies have preserved heights and alignment. Disc space narrowing with endplate sclerosis, vacuum disc disease, and anterior osteophytosis L5-S1. Central dis c protrusion suggested at T7-T8 with mild effacement of anterior thecal sac. Broad-based disc bulge w ith mild effacement of the intrathecal sac and facet arthropathy at L5-S1. No gross evidence of neura l foraminal stenosis. Please refer to dedicated CT chest abdomen pelvis of same day for findings. IMPRESSION: 1. No acute fracture of the thoracolumbar spine. 2. Multilevel degenerative disc disease with central disc herniation at T7-T8 resulting in mild cent ral canal stenosis.
[2023-01-08 18:39] VITALS: BP 158/96; PULSE 93; TEMP 98
--- NOTE | 2023-01-08 19:03 | XR ---
EXAMINATION TYPE: XR elbow complete RT DATE OF EXAM: 01/08/2023 6:57 PM INDICATION: Patient age:Male; 52 years old; Reason for study: fall, pain; COMPARISON: None TECHNIQUE: The right elbow was examined in AP, lateral, and oblique projections. FINDINGS: Mild displacement of the anterior fat pad and sagittal view. Osteophyte formation of the ra dial head and proximal radioulnar joint. No evidence of any acute osseous pathology, joint dislocatio n, or soft tissue swelling is noted. No evidence of joint effusion is present. IMPRESSION: 1. No evidence of acute fracture. 2. Mild displacement of the anterior fat pad. If there remains concern for fracture consider CT.
--- NOTE | 2023-01-08 19:05 | XR ---
EXAMINATION TYPE: XR hand complete RT DATE OF EXAM: 01/08/2023 6:58 PM INDICATION: Patient age:Male; 52 years old; Reason for study: fall, pain; COMPARISON: None TECHNIQUE: Frontal, lateral and oblique views of the right hand were obtained. FINDINGS: Normal alignment of the visualized joints. No acute osseous pathology is identified. No e vidence of soft tissue swelling. There is well corticated density in the fifth digit volar aspect bet ween the second and third and fourth and fifth metacarpal heads likely chronic etiology. IMPRESSION: No acute osseous pathology.
--- NOTE | 2023-01-08 19:06 | XR ---
EXAMINATION TYPE: XR shoulder complete LT DATE OF EXAM: 01/08/2023 6:57 PM INDICATION: Patient age:Male; 52 years old; Reason for study: fall, pain; COMPARISON: None TECHNIQUE: The left shoulder was examined in AP, internally rotated and scapular Y projections. FINDINGS: No evidence of acute osseous pathology, joint dislocation, or soft tissue swelling. The remaining por tions of the visualized chest are unremarkable. IMPRESSION: No acute osseous pathology.
--- NOTE | 2023-01-08 19:07 | XR ---
EXAMINATION TYPE: XR wrist complete LT DATE OF EXAM: 01/08/2023 6:57 PM INDICATION: Patient age:Male; 52 years old; Reason for study: fall, pain; COMPARISON: None TECHNIQUE: left wrist was examined in the. Frontal, navicular, lateral, and oblique. FINDINGS: No acute osseous pathology, joint dislocation, or joint effusion. No evidence of any soft tissue swelling is seen. Lucent area in the distal ulna with nonaggressive features. IMPRESSION: 1. No acute osseous pathology. 2. Lucent lesion in the distal ulna with nonaggressive features.
[2023-01-08] MEDS ORDERED: ACET/COD 300 MG/30 MG STARTER PACK 6 TAB BTL PO STA (19:55)
[2023-01-08] MEDS ORDERED: DIPH,PERTUS(ACELL)TETVAC-LF 0.5 ML VIAL IM ONE (19:55)
[2023-01-08] MEDS ORDERED: MORPHINE SULFATE 4 MG/ML SYRINGE IM STA (19:55)
== END 2023-01-08 21:08 | disposition home or self-care (01) ==
LOC: EC 16:23
DX: S53.401A Unspecified sprain of right elbow, initial encounter (principal); J45.909 Unspecified asthma, uncomplicated; E11.9 Type 2 diabetes mellitus without complications; K21.9 Gastro-esophageal reflux disease without esophagitis; I10 Essential (primary) hypertension; E78.5 Hyperlipidemia, unspecified; Z87.891 Personal history of nicotine dependence; Z88.0 Allergy status to penicillin; Z79.51 Long term (current) use of inhaled steroids; Z79.899 Other long term (current) drug therapy; Z23 Encounter for immunization; W17.89XA Other fall from one level to another, initial encounter; Y99.0 Civilian activity done for income or pay
CPT/HCPCS: 99284; 90471; 29105; 73030; 73080; 73110; 73130; 72128; 72125; 72131; 70450; 71250; 74176; 90715; 96372; J2270

== ENCOUNTER → 2023-11-30 | Outpatient (CLI) | payer BC ==
--- NOTE | 2023-11-30 17:19 | CT ---
EXAMINATION TYPE: CT brain wo con CT DLP: 1207 mGycm, Automated exposure control for dose reduction was used. DATE OF EXAM: 11/30/2023 4:45 PM COMPARISON: 01/08/2023.. CLINICAL INDICATION:Male, 53 years old with history of R51.9 HEADACHE, UNSPECIFIED, headache/memory l oss TECHNIQUE: Brain: Axial CT images of the brain were obtained with coronal and sagittal reformats created and rev iewed. Contrast used: None. Oral contrast used: None. FINDINGS: Brain: Extra-axial spaces: No abnormal extra-axial fluid collections. Ventricular system: Within normal limits Cerebral parenchyma: No acute intraparenchymal hemorrhage or mass effect. The werner-white junction is well differentiated. Cerebellum: Unremarkable. Mass effect: No evidence of midline shift. Intracranial vasculature: unremarkable Soft tissues: Normal. Calvarium/osseous structures: No depressed skull fracture. Paranasal sinuses and mastoid air cells: Mild scattered paranasal sinus disease. Visualized orbits: Orbital contents are intact. IMPRESSION: No acute intracranial process.
== END | disposition home or self-care (01) ==
LOC: RADCTMAIN 16:25
PROVIDERS: ATTEND Family Medicine
DX: R51.9 Headache, unspecified (principal); R41.3 Other amnesia
CPT/HCPCS: 70450

== ENCOUNTER 2025-02-20 17:11 | Emergency (ER) | payer BC ==
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
[2025-02-20] MEDS: DIPH,PERTUS(ACELL)TETVAC-LF 0.5 ML VIAL IM ONE (18:55)
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
[2025-02-20] MEDS ORDERED: LIDOCAINE 1%-EPI 1:100,000 20 ML VIAL SQ STA (19:37)
[2025-02-20] MEDS: CEPHALEXIN 500 MG CAP PO STA (19:50)
[2025-02-20] MEDS: CLINDAMYCIN 150 MG CAP PO STA (20:19)
[2025-02-20] MEDS: LIDOCAINE 1%-EPI 1:100,000 20 ML VIAL SQ STA (20:20)
[2025-02-20 22:05] VITALS: BP 148/98; PULSE 71; RESP 18; TEMP 98.3
== END 2025-02-20 22:05 | disposition home or self-care (01) ==
LOC: EC 17:11
DX: S51.811A Laceration without foreign body of right forearm, initial encounter (principal); Z23 Encounter for immunization; Z88.0 Allergy status to penicillin; Z87.891 Personal history of nicotine dependence; W23.0XXA Caught, crushed, jammed, or pinched between moving objects, initial encounter
CPT/HCPCS: 90471; 90715; 99283